=== PATIENT | female | born 1965 | race Hispanic/Latino ===

== ENCOUNTER 2016-08-08 15:35 | Emergency (ER) | payer OTHER ==
[~2016-08-08] VITALS: Ht 149.9 cm; Wt 65.8 kg
[~2016-08-08 15:35] MED LIST: CLINDAMYCIN HY300 MG PO; PRED FORTE 5 ML5 ML OD
[2016-08-08 15:55] VITALS: BP 127/91
[2016-08-08] MEDS ORDERED: ZITHROMAX250 M2 PO (16:28)
[2016-08-08] MEDS ORDERED: PREDNISONE20 M1 PO (16:28)
--- NOTE | 2016-08-08 16:29 | ED INFLUENZA/URI COMPLAINT ---
History of Present Illness General Chief Complaint: Upper Respiratory Sx/Fever Stated Complaint: COLD LIKE SYMPTOMS, LOSS OF VOICE Source: patient Exam Limitations: no limitations Vital Signs & Intake/Output Vital Signs & Intake/Output Vital Signs Date Time Temp Pulse Resp B/P Pulse O2 O2 Flow FiO2 Ox Delivery Rate 08/08 1632 Room Air 08/08 1555 99.8 76 20 127/91 97 Room Air Allergies Coded Allergies: Penicillins (Mild, RASH 08/08/16) Reconcile Medications Azithromycin (Zithromax) 250 MG TABLET 1 DP PO AD SINUSITIS 2 the first day followed by 1 for days 2-5 Prednisone 20 MG TABLET 2 TAB PO DAILY SINUSITIS Triage Note: TRIAGE: PT TO ER WITH C/C URI S/S WITH PRODUCTIVE COUGH, REPORTS YELLOW PHLEGM. DENIES FEVERS, TEMP 99.8 AT TRIAGE. REPORTS LARYNGITIS AND NASAL CONGESTION. Triage Nurses Notes Reviewed? yes HPI: 51-year-old female who with complaints of 2 days of sinus pain and pressure congestion and loss of voice productive green sputum. Symptoms are moderate, tactile fever, no modifying factors no treatment thus far. (LAMONT ADAM) Past History Travel History Traveled to [place] past 21 day No Medical History Any Pertinent Medical History? 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 No (LAMONT ADAM) Review of Systems Review of Systems Constitutional: Reports: see HPI. EENTM: Reports: see HPI. Respiratory: Reports: see HPI. Cardiovascular: Reports: no symptoms. GI: Reports: no symptoms. Genitourinary: Reports: no symptoms. Musculoskeletal: Reports: no symptoms. Skin: Reports: no symptoms. Neurological/Psychological: Reports: no symptoms. Hematologic/Endocrine: Reports: no symptoms. Immunologic/Allergic: Reports: no symptoms. All Other Systems: Reviewed and Negative (LAMONT ADAM) Physical Exam Physical Exam Ears, Nose, Throat: moist mucous membrane, hearing grossly normal, Tympanic normal, nasal congestion, nasal drainage, pharyngeal erythema Comments: Well-developed well-nourished no apparent distress. HEENT: Atraumatic, extraocular motion intact, tenderness of the maxillary sinus, boggy nasal turbinates and erythema noted. Neck: Supple, mild anterior cervical lymphadenopathy Back: Nontender Respiratory: No respiratory distress. Mild crackles noted right lower lung otherwise clear to auscultation. Heart: Regular rate and rhythm no murmur Extremities: No edema, full range of motion Neuro: Alert and oriented x3 Psych: Mood affect normal, normal memory normal judgment. Skin: Warm and dry, no rash on exposed skin Core Measures Severe Sepsis Present: No Septic Shock Present: No (LAMONT ADAM) Progress Differential Diagnosis: influenza, meningitis, neutropenia, otitis, pneumonia, pharyngitis, sinusitis Plan of Care: SINUSITIS WITH POSSIBLE EARLY PNEUMONIA, WE'LL PLACE ON zITHROMAX RECOMMEND CLOSE FOLLOW-UP. sHE HAS laryngitis as well, we'll place on prednisone. Recommend Motrin and Tylenol for fever and pain. Returning here with worsening symptoms Initial ED EKG: none (LAMONT ADAM) Departure Departure Disposition: HOME OR SELF CARE Condition: Stable Clinical Impression Primary Impression: Sinusitis Qualifiers: Sinusitis location: maxillary Chronicity: acute Recurrence: non- recurrent Qualified Code: J01.00 - Acute maxillary sinusitis, unspecified Referrals: CHRISTINA MORALES APRN (PCP/Family) Additional Instructions: Take antibiotics for your infection as directed. Take prednisone for cough and laryngitis Use [id number] multisystem cold medication as needed. Motrin and Tylenol as needed for fever. Drink plenty of fluids. Return or follow-up with your doctor if not better in the next 3-5 days or if you're having continued worsening fevers, nausea, vomiting, shortness of breath, abdominal pain, difficulty swallowing or drinking or worsening flulike illness. 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 I have also reviewed all the pertinent lab results and diagnostic results. I agree with the findings and the plan of care as documented in the PA's/ORDNANCE TRUCK INSTALLATION SUPERVISOR's documentation. [X] I have reviewed the ED Record and agree with the PA's/ORDNANCE TRUCK INSTALLATION SUPERVISOR's documentation. [] Additions or exceptions (if any) to the PAs/ORDNANCE TRUCK INSTALLATION SUPERVISOR's note and plan are summarized below: [] (DENISA BRICEÑO,ALFREDITO)
[2016-08-08] MEDS ORDERED: LEVOTHYROXINE75 MCG PO (16:34)
== END 2016-08-08 16:35 ==
LOC: ERH 15:35
DX: J32.9 Chronic sinusitis, unspecified (principal)

== ENCOUNTER 2016-10-21 02:46 | Emergency (ER) | payer OTHER ==
[~2016-10-21 02:46] MED LIST changes: +LEVOTHYROXINE75 MCG PO; +PREDNISONE20 M1 PO; +ZITHROMAX250 M2 PO
[2016-10-21 03:38] LABS: ABSOLUTE BASOPHIL COUNT 0 /CUMM (0.0-0.2); ABSOLUTE EOSINOPHIL COUNT 0.1 /CUMM (0.0-0.7); ABSOLUTE GRANULOCYTE CT 5.8 /CUMM (1.4-6.5); ABSOLUTE MONOCYTE COUNT 0.4 /CUMM (0.10-0.60); BASOPHIL % 0.3 % (0.0-2.0); EOSINOPHIL % 0.8 % (0-5); HEMATOCRIT 37.2 % (37-47); MEAN CORPUSCULAR HGB 29.4 PG (27.0-31.0); MEAN CORPUSCULAR HGB CONC 33.6 G/DL (33.0-37.0); MEAN CORPUSCULAR VOLUME 87.7 FL (81.0-99.0); MEAN PLATELET VOLUME 8.7 FL (7.4-10.4); PLATELET COUNT 214 /CUMM (130-400); RBC DISTRIBUTION WIDTH 13.6 % (11.5-14.5); RED BLOOD CELL CT 4.24 /CUMM (4.20-5.40); WHITE BLOOD CELL COUNT 7.3 /CUMM (4.8-10.8)
--- NOTE | 2016-10-21 03:49 | ED GI/GU/ABDOMINAL COMPLAINT ---
History of Present Illness General Chief Complaint: Abdominal Pain/Flank Pain Stated Complaint: ABD PAIN S/P PAIN Source: patient, Exam Limitations: clinical condition Vital Signs & Intake/Output Vital Signs & Intake/Output Vital Signs Date Time Temp Pulse Resp B/P Pulse O2 O2 Flow FiO2 Ox Delivery Rate 10/21 0604 97.3 62 18 131/61 98 Room Air 10/21 0328 Room Air 10/21 0303 97.6 82 18 96 Room Air Allergies Coded Allergies: Penicillins (Mild, RASH 08/08/16) Reconcile Medications Azithromycin (Zithromax) 250 MG TABLET 1 DP PO AD SINUSITIS 2 the first day followed by 1 for days 2-5 Prednisone 20 MG TABLET 2 TAB PO DAILY SINUSITIS Triage Note: UPPER ABD PAIN STARTED ABOUT 6:30 PM VOMITED AT GREETERS DESK Triage Nurses Notes Reviewed? yes ? n Is pt currently ? No HPI: Patient presents for evaluation of severe intermittent epigastric abdominal pain that began about 6 PM this evening. Patient has had a little vomiting but otherwise no associated fever or cold symptoms diarrhea or dysuria. She denies any prior episodes. She is unable to describe the characteristics of the pain. She had milk shortly after the onset of pain but this seems to make the pain worse. Past History Travel History Traveled to [place] past 21 day No (with) Medical History Any Pertinent Medical History? 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 No Review of Systems Review of Systems Constitutional: Reports: no symptoms. EENTM: Reports: no symptoms. Respiratory: Reports: no symptoms. Cardiovascular: Reports: no symptoms. GI: Reports: see HPI. Genitourinary: Reports: no symptoms. Musculoskeletal: Reports: no symptoms. Skin: Reports: no symptoms. Neurological/Psychological: Reports: no symptoms. Hematologic/Endocrine: Reports: no symptoms. Immunologic/Allergic: Reports: no symptoms. All Other Systems: Reviewed and Negative Physical Exam Physical Exam Gastrointestinal: see below Comments: Gen.: Well-nourished, well-developed, no acute respiratory distress. Head: Normocephalic, atraumatic. Eyes: Normal inspection bilaterally Ears: Normal inspection bilaterally Nose: Normal inspection Throat/mouth : Moist mucosa Neck: Supple, full range of motion, no goiter Heart: Regular rate and rhythm, no murmurs rubs or gallops Lungs: Clear to auscultation bilaterally with normal air entry Chest: Nontender Back: Normal range of motion Abdomen: Soft, diffuse tenderness, greatest in the epigastric region with brief voluntary guarding but no rebound, nondistended, normal bowel sounds Extremities: Normal range of motion grossly, equal radial pulses, no cyanosis clubbing or edema Neurologic: Cranial nerves grossly intact, speech is clear Skin: warm and dry Psychiatric: Calm, cooperative, no apparent delusions or hallucinations Core Measures ACS in differential dx? No Severe Sepsis Present: No Septic Shock Present: No Progress Differential Diagnosis: biliary colic, bowel obstruction, diverticulitis, gastritis, ischemic bowel, inflamm bowel dis, kidney stone, PUD/GERD Plan of Care: Orders Procedure Date/time Status Add-on Test (ER Only) 10/22 347 Active URINALYSIS 10/22 347 Active LIPASE 10/21 332 Complete COMPREHENSIVE METABOLIC PANEL 10/21 330 Complete CBC WITHOUT DIFFERENTIAL 10/21 330 Complete Laboratory Tests 10/21/16 0558: Urine Color STRAW, Urine Clarity CLEAR, Urine pH 6.0, Ur Specific [place] 1.010, Urine Protein TRACE H, Urine Ketones NEG, Urine Nitrite NEG, Urine Bilirubin NEG, Urine Urobilinogen 0.2, Ur Leukocyte Esterase SMALL H, Ur Microscopic SEDIMENT EXAMINED, Urine RBC Pending, Urine Hemoglobin TRACE-INTACT, Urine Glucose NEG 10/21/16 0333: Anion Gap 9, Estimated GFR > 60, BUN/Creatinine Ratio 17.8, Glucose 128 H, Calcium 9.6, Total Bilirubin 0.8, AST 33, ALT 51, Alkaline Phosphatase 83, Total Protein 6.8, Albumin 4.2, Globulin 2.6, Albumin/Globulin Ratio 1.6, Lipase 95, CBC w Diff NO MAN DIFF REQ, RBC 4.24, MCV 87.7, MCH 29.4, RDW 13.6, MPV 8.7, Gran % 80.0 H, Lymphocytes % 13.9 L, Monocytes % 5.0, Eosinophils % 0.8, Basophils % 0.3, Absolute Granulocytes 5.8, Absolute Lymphocytes 1.0 L, Absolute Monocytes 0.4, Absolute Eosinophils 0.1, Absolute Basophils 0, PUBS MCHC 33.6 Diagnostic Imaging: Discussed w/RAD: CT Scan. Radiology Impression: PATIENT: LAMAR BARAHONA PRESENT AGE: 51 PATIENT ACCOUNT NO: [id number] : 64 LOCATION: [facility] ORDERING PHYSICIAN: RICHARD MCKEON MD SERVICE DATE: 10/21/16 EXAM TYPE: CAT - CT ABD & PELVIS W/O IV CONTRAS EXAMINATION: CT ABDOMEN AND PELVIS WITHOUT CONTRAST CLINICAL INFORMATION: Epigastric abdominal pain. Tenderness. COMPARISON : None TECHNIQUE: Multidetector volumetric imaging was performed from the superior aspect of the liver through the pubic symphysis. Sagittal and coronal reformatted images were obtained on the technologist's workstation. No oral or intravenous contrast DLP: 459.09 mGy-cm FINDINGS: LUNG BASES: The visualized lung bases are unremarkable. LIVER, GALLBLADDER, AND BILIARY TREE: The liver is normal in size, shape, and attenuation. No focal hepatic lesion or biliary ductal dilatation is present. Multiple peripherally calcified small gallstones in the gallbladder. No gallbladder wall thickening. No pericholecystic fluid. PANCREAS: Unremarkable. SPLEEN: Unremarkable. Spleen measures 11.8 cm AP. ADRENAL GLANDS: Unremarkable. KIDNEYS AND URETERS: The kidneys are normal in size, shape, and attenuation. No hydronephrosis, hydroureter, or calculi seen. No perinephric stranding. BLADDER: There is a bladder diverticulum at the dome of the bladder measuring 6 cm. No bladder stone. No inflammation around the bladder. GASTROINTESTINAL TRACT: The small and large bowel are unremarkable. The appendix is unremarkable. ABDOMINAL WALL: No significant hernia is appreciated. LYMPH NODES: Normal. VASCULAR: Unremarkable. PELVIC VISCERA: Surgical clips in the right and left adnexa. No fluid in cul-de-sac. OSSEOUS STRUCTURES: Unremarkable. IMPRESSION: 1. No acute change. 2. Cholelithiasis. 3. Bladder diverticulum. DICTATED BY: SAL MAN MD DATE/TIME DICTATED:10/21/16444 LEAD PROCESS ENGINEER:EVANGELINA DATE/TIME TRANSCRIBED:10/21/16444 CONFIDENTIAL, DO NOT COPY WITHOUT APPROPRIATE AUTHORIZATION. <Electronically signed in Other Vendor System> SIGNED BY: SAL MAN MD 10/21/16 0454 Initial ED EKG: none Comments: 10/21/2016 6:19:32 AM I have updated LAMAR and her regarding test results. I've asked that she follow up with a surgeon for reevaluation this week as I suspect biliary colic. Departure Departure Disposition: HOME OR SELF CARE Condition: Stable Clinical Impression Primary Impression: Biliary colic Referrals: MOY RAMIREZ DO (PCP/Family) Additional Instructions: [place] as needed for pain. Low-fat diet as discussed. Follow up with Dr. Neil Wood this week for reevaluation of your pain and the possibility of having her gallbladder removed. Notify your primary care doctor of this emergency department visit and treatment plan. Return if any concerns or sudden worsening. Please note that there might be incidental findings in your evaluation that are unrelated to the current emergency department visit. Please notify your primary care doctor about this emergency department visit in order to obtain and review all of the testing performed so that these incidental findings can be monitored as needed. If you had an x-ray performed, please understand that some fractures may not be seen on the initial set of x-rays. If your symptoms persist you might need a repeat set of x-rays to check for such a fracture. If you had a laceration evaluated, please understand that foreign bodies such as glass or wood may not be visible to the naked eye or on plain x-rays. If the wound becomes red, swollen, increasingly more painful or if there is any drainage from the wound, please have it reevaluated by a physician for the possibility of a retained foreign body. Thank you for choosing the [facility] Emergency Department for your care. It was a pleasure to serve you today. Richard Mckeon M.D. [facility] Departure Forms: Customer Survey General Discharge Information Prescriptions: Current Visit Scripts Hydrocodone/Acetaminophen ([place] 5-325 Tablet) 1-2 TAB PO Q6P PRN PAIN #20 TAB Ondansetron (Zofran Odt) 1 TAB SL Q6P PRN NAUSEA/VOMITING #10 TAB
--- NOTE | 2016-10-21 04:54 | CT SCAN REPORT ---
EXAMINATION: CT ABDOMEN AND PELVIS WITHOUT CONTRAST CLINICAL INFORMATION: Epigastric abdominal pain. Tenderness. COMPARISON: None TECHNIQUE: Multidetector volumetric imaging was performed from the superior aspect of the liver through the pubic symphysis. Sagittal and coronal reformatted images were obtained on the technologist's workstation. No oral or intravenous contrast DLP: 459.09 mGy-cm FINDINGS: LUNG BASES: The visualized lung bases are unremarkable. LIVER, GALLBLADDER, AND BILIARY TREE: The liver is normal in size, shape, and attenuation. No focal hepatic lesion or biliary ductal dilatation is present. Multiple peripherally calcified small gallstones in the gallbladder. No gallbladder wall thickening. No pericholecystic fluid. PANCREAS: Unremarkable. SPLEEN: Unremarkable. Spleen measures 11.8 cm AP. ADRENAL GLANDS: Unremarkable. KIDNEYS AND URETERS: The kidneys are normal in size, shape, and attenuation. No hydronephrosis, hydroureter, or calculi seen. No perinephric stranding. BLADDER: There is a bladder diverticulum at the dome of the bladder measuring 6 cm. No bladder stone. No inflammation around the bladder. GASTROINTESTINAL TRACT: The small and large bowel are unremarkable. The appendix is unremarkable. ABDOMINAL WALL: No significant hernia is appreciated. LYMPH NODES: Normal. VASCULAR: Unremarkable. PELVIC VISCERA: Surgical clips in the right and left adnexa. No fluid in cul-de-sac. OSSEOUS STRUCTURES: Unremarkable. IMPRESSION: 1. No acute change. 2. Cholelithiasis. 3. Bladder diverticulum.
[2016-10-21 06:04] VITALS: BP 131/61
[2016-10-21] MEDS ORDERED: ZOFRAN ODT4 M1 SL (06:21)
[2016-10-21] MEDS ORDERED: NORCO 5-325 TA1 EACH PO (06:21)
[2016-10-21] MEDS ORDERED: LEVOTHYROXINE75 MCG PO (06:29)
== END 2016-10-21 06:30 ==
LOC: ERH 02:46
PROVIDERS: Emergency Medicine
DX: K80.50 Calculus of bile duct without cholangitis or cholecystitis without obstruction (principal)
CPT/HCPCS: 74176; 81001; 96361; 96374; 96375; J2405

== ENCOUNTER 2018-01-28 11:12 | Observation (INO) | payer OTHER ==
[~2018-01-28] VITALS: Ht 149.9 cm; Wt 74.0 kg
[~2018-01-28 11:12] MED LIST changes: +LEVSIN-SL0.125 MG SL; +NORCO 5-325 TA1 EACH PO; +PANTOPRAZOLE SO40 M1 PO; +ZOFRAN ODT4 M1 SL
[2018-01-28 11:32] LABS: ABSOLUTE BASOPHIL COUNT 0 /CUMM (0.0-0.2); ABSOLUTE EOSINOPHIL COUNT 0.1 /CUMM (0.0-0.7); ABSOLUTE LYMPH COUNT 1.5 /CUMM (1.2-3.4); ABSOLUTE MONOCYTE COUNT 0.4 /CUMM (0.10-0.60); BASOPHIL % 0.3 % (0.0-2.0); GRANULOCYTE % 66.3 % (42.2-75.2); HEMATOCRIT 38.6 % (37-47); MEAN CORPUSCULAR HGB 29.8 PG (27.0-31.0); MEAN CORPUSCULAR HGB CONC 34.8 G/DL (33.0-37.0); MEAN CORPUSCULAR VOLUME 85.4 FL (81.0-99.0); MEAN PLATELET VOLUME 9.3 FL (7.4-10.4); PLATELET COUNT 217 /CUMM (130-400); RBC DISTRIBUTION WIDTH 13.5 % (11.5-14.5); RED BLOOD CELL CT 4.51 /CUMM (4.20-5.40)
--- NOTE | 2018-01-28 12:21 | ED GENERAL ADULT ---
History of Present Illness General Chief Complaint: Abdominal Pain/Flank Pain Stated Complaint: ABD PAIN Source: patient, family Exam Limitations: language barrier Allergies Coded Allergies: Penicillins (Mild, RASH 08/08/16) Reconcile Medications Hydrocodone/Acetaminophen ([place] 5-325 Tablet) 5 MG-325 MG TABLET 1-2 TAB PO Q4-6 PRN PRN severe pain Hyoscyamine Sulfate (Levsin-Sl) 0.125 MG TAB.SUBL 1-2 TAB SL Q4P PRN abdominal pain Levothyroxine Sodium 75 MCG TABLET 75 MCG PO DAILY HYPOTHYROID (Reported) Ondansetron (Zofran Odt) 4 MG TAB.RAPDIS 1 TAB SL TID PRN nausea Pantoprazole Sodium 40 MG TABLET.DR 1 TAB PO PRN GI (Reported) Triage Note: PT TO ED C/O RUQ ABD PAIN FOR A WHILE. SEEN FOR SAME ON 01/23. DENIES N/V/D. DENIES FEVERS. PT WAS SENT HOME WITH PO MEDS, HAS BEEN TAKING BUT THEY ARE NOT HELPING. Triage Nurses Notes Reviewed? yes Onset: Abrupt Duration: day(s): Timing: recent history HPI: 01/28/18 3:08 PM 52-year-old female presents to the emergency department with severe right upper quadrant pain nausea and vomiting. The patient had recently been seen and diagnosed with gallstones. She denies any fever. The pain is severe. (Richard Cruz DO) Vital Signs & Intake/Output Vital Signs & Intake/Output Vital Signs Date Time Temp Pulse Resp B/P B/P Pulse O2 O2 Flow FiO2 Mean Ox Delivery Rate 01/28 1601 98.5 70 16 171/79 98 Room Air 01/28 1349 99.0 63 18 132/82 100 Room Air Room Air 01/28 1244 Room Air 01/28 1115 98.5 62 20 175/93 99 Room Air (Linwood Quezada) Past History Travel History Traveled to [place] past 21 day No Medical History Any Pertinent Medical History? 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 No (Richard Cruz DO) Review of Systems Review of Systems Constitutional: Denies: fever. EENTM: Reports: no symptoms. Respiratory: Denies: short of breath. Cardiovascular: Denies: chest pain. GI: Reports: abdominal pain. Genitourinary: Reports: no symptoms. Musculoskeletal: Reports: no symptoms. Skin: Reports: no symptoms. Neurological/Psychological: Reports: no symptoms. Hematologic/Endocrine: Reports: no symptoms. Immunologic/Allergic: Reports: no symptoms. (Richard Cruz DO) Physical Exam Physical Exam General Appearance: well developed/nourished, alert, awake, anxious, moderate distress Head: atraumatic, normal appearance Eyes: Bilateral: normal appearance, PERRL, EOMI. Ears, Nose, Throat: normal pharynx, normal ENT inspection Neck: normal inspection, supple, full range of motion Respiratory: normal breath sounds, chest non-tender, no respiratory distress Cardiovascular: regular rate/rhythm Peripheral Pulses: 4+ radial (R), 4+ radial (L) Gastrointestinal: soft, tenderness Back: normal range of motion Extremities: normal range of motion Neurologic/Psych: no motor/sensory deficits, awake, alert, oriented x 3 Skin: intact, normal color, warm/dry Core Measures ACS in differential dx? No CVA/TIA Diagnosis: No Sepsis Present: No Sepsis Focused Exam Completed? No (Richard Cruz DO) Progress Differential Diagnoses I considered the following diagnoses in my evaluation of the patient: [ Cholecystitis, cholelithiasis, common bile duct stone] Initial ED EKG: pending (Richard Cruz DO) Plan of Care: Orders Procedure Date/time Status EKG 01/28 1521 Active URINALYSIS 01/28 1118 Complete LIPASE 01/28 1118 Complete HEPATIC FUNCTION PANEL 01/28 1118 Complete CBC WITHOUT DIFFERENTIAL 01/28 1118 Complete BASIC METABOLIC PANEL 01/28 1118 Complete Current Medications Sig/Dany Start time Last Medication Dose Stop Time Status Admin Metronidazole 500 MG IQ8 01/28 1600 UNVr 01/28 (Flagyl) 1546 N/A 1 UNIT (No Carrier) Sodium Chloride 1,000 ML ONCE ONE 01/28 1430 AC 01/28 (Normal Saline 0.9%) 01/28 2109 1454 Laboratory Tests 01/28/18 1300: Urine Color YEL, Urine Clarity CLEAR, Urine pH 7.0, Ur Specific [place] 1.015, Urine Protein 100 H, Urine Ketones NEG, Urine Nitrite NEG, Urine Bilirubin NEG, Urine Urobilinogen 2.0 H, Ur Leukocyte Esterase SMALL H, Ur Microscopic SEDIMENT EXAMINED, Urine RBC 1-3, Urine WBC 1-3 H, Ur Epithelial Cells FEW, Urine Bacteria FEW H, Urine Hemoglobin NEG, Urine Glucose NEG 01/28/18 1126: Anion Gap 11, Estimated GFR 58 L, BUN/Creatinine Ratio 19.0, Glucose 118 H, Calcium 9.8, Total Bilirubin 1.5 H, Direct Bilirubin 0.8 H, AST 215 H, ALT 204 H, Alkaline Phosphatase 102, Total Protein 6.9, Albumin 4.1, Lipase 71, CBC w Diff NO MAN DIFF REQ, RBC 4.51, MCV 85.4, MCH 29.8, MCHC 34.8, RDW 13.5, MPV 9.3, Gran % 66.3, Lymphocytes % 25.5, Monocytes % 5.9, Eosinophils % 2.0, Basophils % 0.3, Absolute Granulocytes 4.0, Absolute Lymphocytes 1.5, Absolute Monocytes 0.4, Absolute Eosinophils 0.1, Absolute Basophils 0 (Linwood Quezada) Departure Departure Condition: Stable Clinical Impression Primary Impression: Cholecystitis Secondary Impressions: Cholelithiasis Referrals: Dario Wilson DO (PCP/Family) Departure Forms: Customer Survey General Discharge Information Comments The patient was signed out to MATTEO Carmona at 3 PM. The patient was pending surgical decision, and EKG. Admission Note Spoke With: Marcelo Solorio MD Documentation of Exam: Documentation of any treatments & extenuating circumstances including Concerns Regarding Discharge (functional status, medication knowledge or non-compliance, living conditions, etc.) that warrant an admission rather than observation: [The patient is being admitted to the surgical service for operative care.] (Richard Cruz DO) Departure Disposition: STILL A PATIENT OR/GI Note Spoke With: Marcelo Solorio MD ED Treatment Decision: LAMAR BARAHONA requires urgent operative management or an emergent procedure that cannot be performed in the Emergency Room setting. Transport To: Surgical Suite (Linwood Quezada) Critical Care Note Critical Care Note Critical Care Time: non-applicable (Richard Cruz DO)
--- NOTE | 2018-01-28 12:34 | RADIOLOGY REPORT ---
EXAMINATION: XR CHEST CLINICAL INFORMATION: Cough. Signs/symptoms of pneumonia. COMPARISON: 11/13/2011 and 03/21/2017 TECHNIQUE: 2 views of the chest were obtained. FINDINGS: There appears to be chronic thickening of peribronchial interstitium in the right upper lobe. The minor fissure appears to be mildly elevated. No pulmonary consolidation or pleural effusion. Cardiac silhouette is normal in size. The hilar contours are normal. The visualized bones of the thorax are intact. IMPRESSION: There appears to be chronic, mild prominence of peribronchial interstitium and mild volume loss of the right upper lobe. Given history of cough, the possibility of recurrent airway inflammation/bronchitis would be considered. However, there is no acute pulmonary consolidation.
--- NOTE | 2018-01-28 13:41 | ULTRASOUND REPORT ---
EXAMINATION: US ABDOMEN LIMITED CLINICAL INFORMATION: Right upper quadrant. Evaluation for cholecystitis requested.. COMPARISON: CT abdomen pelvis 10/21/2017 TECHNIQUE: Real-time imaging of the right upper quadrant abdominal viscera. Examination limited as patient wasn't able to hold breath and severe pain. Overlying bowel gas also limits evaluation. FINDINGS: PANCREAS: The pancreas is only partially visualized. Visualized portions are grossly unremarkable. LIVER: Normal. The liver demonstrates normal size, contour and echogenicity. No focal lesion or intrahepatic biliary duct dilatation. GALLBLADDER: The gallbladder is physiologically distended. Numerous gallstones are present. Gallbladder wall thickening measuring up to 7 mm. No definitive pericholecystic fluid. Sonographic [place]'s sign is positive per technologist report. COMMON BILE DUCT: Normal in caliber measuring 0.5 cm in diameter. RIGHT KIDNEY: Limited visualization. No gross renal calculi or hydronephrosis. The kidney measures 8.3 cm in maximum dimension. FREE FLUID: None. IMPRESSION: Gallstones are again visualized within a physiologically distended gallbladder. There is gallbladder wall thickening but no pericholecystic fluid visualized. Sonographic [place]'s sign is positive. Correlation for acute cholecystitis should be based on clinical assessment.
--- NOTE | 2018-01-28 16:36 | History & Physical Pre-Op ---
General Information and HPI MD Statement: I have seen and personally examined LAMAR BARAHONA and documented this H& P. The patient is a 52 year old F who presented with a patient stated chief complaint of []. History of Present Illness: This is a 52-year-old woman who presents to the emergency room for the second time in less than 1 week. She complains of persistent right upper quadrant abdominal pain. She states the pain began last week and she sought attention in the ER. Evaluation showed gallstones with normal CBCs and LFTs. Her pain improved while in the ER she was sent home with Percocet. Patient states that since then she has been experiencing recurrent pain after meals. The pain is in the right upper quadrant and radiates to the back. There is no nausea or vomiting although her appetite is suppressed. Bowel function is regular. Today there is evidence of chronic inflammatory changes of the gallbladder as well as mild elevation of LFTs. Allergies/Medications Allergies: Coded Allergies: Penicillins (Mild, RASH 08/08/16) Home Med list Hydrocodone/Acetaminophen ([place] 5-325 Tablet) 5 MG-325 MG TABLET 1-2 TAB PO Q4-6 PRN PRN severe pain Hyoscyamine Sulfate (Levsin-Sl) 0.125 MG TAB.SUBL 1-2 TAB SL Q4P PRN abdominal pain Levothyroxine Sodium 75 MCG TABLET 75 MCG PO DAILY HYPOTHYROID (Reported) Ondansetron (Zofran Odt) 4 MG TAB.RAPDIS 1 TAB SL TID PRN nausea Pantoprazole Sodium 40 MG TABLET.DR 1 TAB PO PRN GI (Reported) Past History Medical History Neurological: NONE EENT: NONE Cardiovascular: NONE Respiratory: NONE Gastrointestinal: NONE Hepatic: NONE Renal: NONE Musculoskeletal: NONE Psychiatric: NONE Blood Disorders: NONE Cancer(s): NONE 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 No dyspnea on exertion. No dysuria. No arthritic conditions. Abdominal pain per HPI remainder 12 points negative Exam & Diagnostic Data Last 24 Hrs of Vital Signs/I&O Vital Signs Date Time Temp Pulse Resp B/P B/P Pulse O2 O2 Flow FiO2 Mean Ox Delivery Rate 01/28 1601 98.5 70 16 171/79 98 Room Air 01/28 1349 99.0 63 18 132/82 100 Room Air Room Air 01/28 1244 Room Air 01/28 1115 98.5 62 20 175/93 99 Room Air Intake & Output 01/28 1600 01/28 0800 01/28 0000 Intake Total 0 Output Total Balance 0 Intake, Oral 0 Patient 150 lb Weight Weight Reported by Patient Measurement Method Physical Exam: Gen.: She is overweight but not obese. She looks her stated age. She is in mild amount of distress. HEENT: Anicteric PERRL EOMI Chest: Clear bilaterally Heart: Regular rate rhythm Abdomen: Soft tender upper quadrant negative [place] sign no mass no hernia Extremities: No sinus clubbing or edema Last 24 Hrs of Labs/Laith: Laboratory Tests 01/28/18 1300: Urine Color YEL, Urine Clarity CLEAR, Urine pH 7.0, Ur Specific [place] 1.015, Urine Protein 100 H, Urine Ketones NEG, Urine Nitrite NEG, Urine Bilirubin NEG, Urine Urobilinogen 2.0 H, Ur Leukocyte Esterase SMALL H, Ur Microscopic SEDIMENT EXAMINED, Urine RBC 1-3, Urine WBC 1-3 H, Ur Epithelial Cells FEW, Urine Bacteria FEW H, Urine Hemoglobin NEG, Urine Glucose NEG 01/28/18 1126: Anion Gap 11, Estimated GFR 58 L, BUN/Creatinine Ratio 19.0, Glucose 118 H, Calcium 9.8, Total Bilirubin 1.5 H, Direct Bilirubin 0.8 H, AST 215 H, ALT 204 H, Alkaline Phosphatase 102, Total Protein 6.9, Albumin 4.1, Lipase 71, CBC w Diff NO MAN DIFF REQ, RBC 4.51, MCV 85.4, MCH 29.8, MCHC 34.8, RDW 13.5, MPV 9.3, Gran % 66.3, Lymphocytes % 25.5, Monocytes % 5.9, Eosinophils % 2.0, Basophils % 0.3, Absolute Granulocytes 4.0, Absolute Lymphocytes 1.5, Absolute Monocytes 0.4, Absolute Eosinophils 0.1, Absolute Basophils 0 Diagnostic Data Other Results Ultrasound right upper quadrant shows gallstones with gallbladder wall thickening. There is no pericholecystic fluid. Common bile duct is normal caliber Assessment/Plan Assessment/Plan: This is a 52-year-old woman with unrelenting right upper quadrant abdominal pain for 5 days. There is gallbladder wall thickening which was not seen previously. Concern is for acute cholecystitis. There is mild elevation in her LFTs but normal bile duct on ultrasound. Unclear whether or not the LFTs related to a Mirrizi syndrome or common bile duct stone. Recommendations are that for laparoscopic cholecystectomy with intraoperative cholangiogram. Postoperative ERCP will be performed pending the findings. Patient's informed the risk of the operation including bleeding, infection, conversion to open, postcholecystectomy diarrhea and she agrees to proceed. As Ranked By This Provider Problem List: 1. Cholecystitis Copies To: Dario Wilson DO
--- NOTE | 2018-01-28 16:41 | History & Physical Pre-Op ---
General Information and HPI MD Statement: I have seen and personally examined GABI DEVINELOSLAMAR and documented this H& P. The patient is a 52 year old F who presented with a patient stated chief complaint of [abdominal pain]. Source of Information: patient, family Exam Limitations: no limitations History of Present Illness: Ms King is a 52yo female who has a known history of gallstones. She had an attack a year ago and at that time was told to follow up with a surgeon. She didn't follow up and had no other problems until last week. On 01/23 she presented to the ED with abdominal pain and at that time her labs were all wnl including lft's and wbc. She was discharged from the ED with biliary colic. She returns today because her pain worsened overnight. She had coffee at 9 am, no other food or drink today. Allergies/Medications Allergies: Coded Allergies: Penicillins (Mild, RASH 08/08/16) Home Med list Hydrocodone/Acetaminophen ([place] 5-325 Tablet) 5 MG-325 MG TABLET 1-2 TAB PO Q4-6 PRN PRN severe pain Hyoscyamine Sulfate (Levsin-Sl) 0.125 MG TAB.SUBL 1-2 TAB SL Q4P PRN abdominal pain Levothyroxine Sodium 75 MCG TABLET 75 MCG PO DAILY HYPOTHYROID (Reported) Ondansetron (Zofran Odt) 4 MG TAB.RAPDIS 1 TAB SL TID PRN nausea Pantoprazole Sodium 40 MG TABLET.DR 1 TAB PO PRN GI (Reported) Past History Medical History Neurological: NONE EENT: NONE Cardiovascular: NONE Respiratory: NONE Gastrointestinal: NONE Hepatic: NONE Renal: NONE Musculoskeletal: NONE Psychiatric: NONE Endocrine: ?THYROID Blood Disorders: NONE Cancer(s): 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
--- NOTE | 2018-01-28 18:43 | Operative Report ---
Operative/Inv Procedure Report Surgery Date: 01/28/18 Name of Procedure: Laparoscopic cholecystectomy with cholangiogram Pre-Operative Diagnosis: Acute cholecystitis Post-Operative Diagnosis: Acute cholecystitis with choledocholithiasis Estimated Blood Loss: less than 50ml Surgeon/Boatswains Mate: Marcelo Solorio M.D./Ramon FELIPE Anesthesia: general endotracheal tube Drains: None Specimens: Gallbladder Operative Indication: 52-year-old woman presents with unrelenting right upper quadrant abdominal pain for 4 days. She has findings on clinical examination and ultrasound of acute cholecystitis. There is elevated LFTs (mild) without biliary ductal dilatation. She presents for laparoscopic cholecystectomy with cholangiogram Operative/Procedure Note Note: After informed consent patient is brought to the operating room and laid supine. General anesthesia was obtained and her abdomen was prepped and draped. The skin above the umbilicus infiltrated with local anesthesia and a curvilinear incision made sharply. We came down through the subcutaneous tissues bluntly and grasped the fascia with Nayla's. A fasciotomy was created sharply and stay sutures placed. The peritoneum was entered sharply and a blunt Mccoy port was placed. Pneumoperitoneum was achieved. 3, 5 mm ports were placed in the epigastrium and right upper quadrant after local anesthesia was instilled and under direct vision the camera. She's placed in reverse Trendelenburg and rotated towards the left. The gallbladder is identified. Gallbladder was edematous with watery inflammatory changes. It was grasped at the dome and retracted towards the head. Infundibulum was then grasped. Adhesions to the undersurface were taken down with blunt and cautery dissection. We dissected both sides the triangle Calot peritoneal tissue with cautery. The artery was medial and its normal anatomic position. It was cauterized medially to allow it to be mobilized away from the duct. [place] was cleared of areolar tissue with cautery. The arteries was doubly ligated with clips. A proximal clip was placed on the cystic duct and a ductotomy created. Large amounts of sludge spontaneously evacuated. Cholangiogram catheter was placed down into the cystic duct and balloon inflated. Under live fluoroscopy, cholangiogram was performed. There was filling of the intrahepatic and extra hepatic biliary ducts. There is no passage of contrast into the duodenum. Then went back in laparoscopically and passed the deflated balloon catheter distally into the common duct. I was able to push the catheter into what appeared to be the duodenum. Scant pressure was required to do so. Repeat cholangiogram was then performed. There is easy flow of contrast into the duodenum. There is no intraluminal filling defects. We then concluded the cholangiogram. The distal cystic duct was then doubly ligated with clips. Gallbladder is removed from the fossa electrocautery. It was placed in Endo Catch bag and cinched up. Right upper quadrant was and suction irrigated normal saline. Hemostasis achieved with cautery. The ports were then removed and the gallbladder delivered and passed off the field. The fascia was closed with 0 Vicryl suture. Skin incisions closed with 4-0 Vicryl. Steri-Strips and sterile dressing applied. Sponge and needle counts are correct. CC: Dario Wilson DO
--- NOTE | 2018-01-28 19:43 | RADIOLOGY REPORT ---
EXAMINATION: XR ABDOMEN CLINICAL INDICATION: Cholangiogram. COMPARISON: None TECHNIQUE: AP view of the abdomen. FINDINGS: There are 9 digital images obtained from T2 cholangiogram revealing good opacification of the entire CBD and proximal intrahepatic ducts with no intraluminal filling defect. The soft tissues are normal. IMPRESSION: T-tube cholangiogram reveals no intraluminal filling defect in the CBD or the proximal intrahepatic ducts.
--- NOTE | 2018-01-28 20:33 | Patient Discharge Instructions ---
Discharge Instructions General Discharge Information You were seen/treated for: CHOLECYSTITIS You had these procedures: LAP ROMERO Watch for these problems: FEVER OR CHILLS, DRAINAGE FROM WOUNDS REDNESS AROUND SURGICAL SITES INCREASING ABDOMINAL PAIN Call Surgeon to remove: WOUND CHECK No bath, but you may shower: Yes Other wound care: KEEP DRY AND COVERED Diet Continue normal diet: Yes Activity Full Activity/No Limits: No Activity Self Limited: Yes Acute Coronary Syndrome Inclusion Criteria At DC or during hospital stay patient has or had the following: Discharge Core Measures Meds if any: Prescribed or Continued at Discharge Meds if any: NOT Prescribed or Continued at Discharge Congestive Heart Failure Inclusion Criteria At DC or during hospital stay patient has or had the following: Discharge Core Measures Meds if any: Prescribed or Continued at Discharge Meds if any: NOT Prescribed or Continued at Discharge Cerebrovascular accident Inclusion Criteria At DC or during hospital stay patient has or had the following: CVA/TIA Diagnosis No Discharge Core Measures Meds if any: Prescribed or Continued at Discharge Meds if any: NOT Prescribed or Continued at Discharge Venous thromboembolism Discharge Core Measures - Per Current guidelines, there needs to be overlap - treatment for the first 5 days of Warfarin therapy. - If discharged on Warfarin prior to 5 days of - overlap therapy, the patient will need to be - assessed for post discharge needs including - *Post discharge parental anticoagulation - *Warfarin and/or parental anticoagulation education - *Follow up date to check INR post discharge Meds if any: Prescribed or Continued at Discharge Note: Overlap Therapy is Warfarin and Anticoagulant Meds if any: NOT Prescribed or Continued at Discharge
[2018-01-28 20:34] VITALS: BP 141/76
--- NOTE | 2018-01-28 20:37 | Surg Short-stay <48hrs Dis Sum ---
Visit Information Visit Dates Admission Date: 01/28/18 Discharge Date: 01/29/2018 Surgical Short Stay DC Summary Admission Diagnosis: CHOLECYSTITIS Final Diagnosis: CHOLECYSTITIS Procedure(s): LAPROSCOPIC CHOLECYSTECTOMY Summary/Significant Findings: 52 Y/O FEMALE WAS TAKEN TO THE OPERATING ROOM BY DR DUMONT AND UNDERWENT A LAPRASCOPIC CHOLECYSTEMY WITH INTRAOPERATIVE CHOLANGIOGRAM. SHE TOLERATED THE PROCEDURE WELL. HER DIET WAS ADVANCED AND SHE AMBULATED OOB. SHE IS DISCHARGED HOME IN STABLE CONDITION Condition at Discharge: STABLE Discharge Disposition: home or self care Discharge instructions provided to patient/family: Yes Post discharge follow-up plan: [address] DUMONT Copies to: Osmin BRICEÑO,Marcelo Villegas
[2018-01-28 22:30] VITALS: BP 158/70
--- NOTE | 2018-01-28 23:29 | PN- General Surgery ---
HuySumi 01/28/18 2323: Subjective Subjective: 52 Y/O FEMALE COMFORTABLE POSTOP LAP ROMERO WITHOUT COMPLAINTS. SHE HAS SOME ITCHING POSTOP AND REPONDED TO BENEDRYL. Objective Vital Signs and I&Os Vital Signs Date Time Temp Pulse Resp B/P B/P Pulse O2 O2 Flow FiO2 Mean Ox Delivery Rate 01/28 2034 100 Nasal 2.0L Cannula 01/28 2034 98.3 67 16 141/76 100 Nasal 2.0L Cannula 01/28 1601 98.5 70 16 171/79 98 Room Air 01/28 1349 99.0 63 18 132/82 100 Room Air Room Air 01/28 1244 Room Air 01/28 1115 98.5 62 20 175/93 99 Room Air Intake & Output 01/28 1600 01/28 0800 01/28 0000 01/27 1600 01/27 0800 01/27 0000 Intake Total 0 Output Total Balance 0 Intake, Oral 0 Patient 150 lb Weight Weight Reported by Patient Measurement Method Physical Exam: VSS AFEBRILE NO WHEAL OR HIVES CHEST -CTA SYMMETRIC HEART-RRR WITHOUT MRG ABD -DRESSINGS DRY, QUIET ABDOMEN BILATERAL LOWER EXTREMITIES -CALVES SOFT, DISTAL PULSES INTACT Current Medications: Current Medications Sig/Dany Start time Last Medication Dose Route Stop Time Status Admin Ceftriaxone Sodium 2,000 MG DAILY 01/29 0900 AC IV Ceftriaxone Sodium 0 .STK-MED ONE 01/28 1536 DC .ROUTE Ceftriaxone Sodium 1,000 MG ONCE ONE 01/28 1530 DC 01/28 IV 01/28 1531 1546 Dextrose/Sodium 1,000 ML .Q20H 01/28 1845 AC 01/28 Chloride IV 2000 Diphenhydramine HCl 25 MG ONCE ONE 01/285 DC 01/28 PO 01/28 211 2123 Heparin Sodium 5,000 UNIT Q8 01/28 2200 AC 01/28 (Porcine) SC 2123 Levothyroxine Sodium 0.075 MG DAILY AC 01/29 0700 AC PO Metronidazole 500 MG IQ8 01/29 0000 CAN N/A 1 UNIT IV Metronidazole 500 MG IQ8 01/28 1600 AC 01/28 N/A 1 UNIT IV 1546 Morphine Sulfate 2 MG Q2P PRN 01/28 1845 AC IV Morphine Sulfate 0 .STK-MED ONE 01/28 1438 DC .ROUTE Morphine Sulfate 4 MG ONCE ONE 01/28 1430 DC 01/28 IV 01/28 1431 1454 Omeprazole 40 MG DAILY AC 01/29 0700 AC PO Ondansetron HCl 4 MG Q6P PRN 01/28 1845 AC IV Ondansetron HCl 0 .STK-MED ONE 01/28 1132 DC PO Ondansetron HCl 4 MG ONCE ONE 01/28 1130 DC 01/28 PO 01/28 1131 1134 Oxycodone HCl 5 MG Q4P PRN 01/28 1845 AC PO Oxycodone HCl 10 MG Q4P PRN 01/28 1845 AC PO Sodium Chloride 1,000 ML ONCE ONE 01/28 1430 DC 01/28 IV 01/28 2109 1454 Results Last 48 Hours of Labs: Laboratory Tests 01/28 01/28 1300 1126 Chemistry Sodium (137 - 145 mmol/L) 143 Potassium (3.5 - 5.1 mmol/L) 4.2 Chloride (98 - 107 mmol/L) 104 Carbon Dioxide (22 - 30 mmol/L) 28 Anion Gap (5 - 16) 11 BUN (7 - 17 mg/dL) 19 H Creatinine (0.5 - 1.0 mg/dL) 1.0 Estimated GFR (>60 ml/min) 58 L BUN/Creatinine Ratio (7 - 25 %) 19.0 Glucose (65 - 99 mg/dL) 118 H Calcium (8.4 - 10.2 mg/dL) 9.8 Total Bilirubin (0.2 - 1.3 mg/dL) 1.5 H Direct Bilirubin (< 0.4 mg/dL) 0.8 H AST (14 - 36 U/L) 215 H ALT (9 - 52 U/L) 204 H Alkaline Phosphatase (<127 U/L) 102 Total Protein (6.3 - 8.2 g/dL) 6.9 Albumin (3.5 - 5.0 g/dL) 4.1 Lipase (23 - 300 U/L) 71 Hematology CBC w Diff NO MAN DIFF REQ WBC (4.8 - 10.8 /CUMM) 6.0 RBC (4.20 - 5.40 /CUMM) 4.51 Hgb (12.0 - 16.0 G/DL) 13.4 Hct (37 - 47 %) 38.6 MCV (81.0 - 99.0 FL) 85.4 MCH (27.0 - 31.0 PG) 29.8 MCHC (33.0 - 37.0 G/DL) 34.8 RDW (11.5 - 14.5 %) 13.5 Plt Count (130 - 400 /CUMM) 217 MPV (7.4 - 10.4 FL) 9.3 Gran % (42.2 - 75.2 %) 66.3 Lymphocytes % (20.5 - 51.1 %) 25.5 Monocytes % (1.7 - 9.3 %) 5.9 Eosinophils % (0 - 5 %) 2.0 Basophils % (0.0 - 2.0 %) 0.3 Absolute Granulocytes (1.4 - 6.5 /CUMM) 4.0 Absolute Lymphocytes (1.2 - 3.4 /CUMM) 1.5 Absolute Monocytes (0.10 - 0.60 /CUMM) 0.4 Absolute Eosinophils (0.0 - 0.7 /CUMM) 0.1 Absolute Basophils (0.0 - 0.2 /CUMM) 0 Urines Urine Color (YEL,AMB,STR) YEL Urine Clarity (CLEAR) CLEAR Urine pH (5.0 - 8.0) 7.0 Ur Specific [place] (1.001 - 1.035) 1.015 Urine Protein (NEG,<30 MG/DL) 100 H Urine Ketones (NEG) NEG Urine Nitrite (NEG) NEG Urine Bilirubin (NEG) NEG Urine Urobilinogen (0.1 - 1.0 EU/dl) 2.0 H Ur Leukocyte Esterase (NEG) SMALL H Ur Microscopic SEDIMENT EXAMINED Urine RBC (0 - 5 /HPF) 1-3 Urine WBC (0 - 2 /HPF) 1-3 H Ur Epithelial Cells (NONE,FEW) FEW Urine Bacteria (NEG/NONE) FEW H Urine Hemoglobin (NEG) NEG Urine Glucose (N MG/DL) NEG Assessment/Plan Assessment/Plan POSTOP CHECK AFTER LAP ROMERO PRURITIS CONTROLLED ON BENEDRYL PAIN CONTROLLED ADVANCE DIET IN AM, HEPLOCK FLUIDS D/C PLANNING FOR TOMORROW Core Measures Venous Thromboembolism VTE Risk Factors Surgery No Mechanical VTE Prophylaxis d/t N/A MechProphylax Ordered No VTE Pharm Prophylaxis d/t NA PharmProphylax ordered
[2018-01-29 03:07] VITALS: BP 124/60
[2018-01-29 06:42] VITALS: BP 128/66
--- NOTE | 2018-01-29 07:38 | PN- General Surgery ---
See Addendum Subjective Subjective: Pt in bed, no complaints, pain minimal,well controlled with oral medication. tolerating clears, no n/v Voiding, ambulating. denies cp/sob. has a mildheadache this morning Objective Vital Signs and I&Os Vital Signs Date Time Temp Pulse Resp B/P B/P Pulse O2 O2 Flow FiO2 Mean Ox Delivery Rate 01/29 0642 98.2 66 18 128/66 98 Room Air 01/29 0307 98.3 68 18 124/60 100 Nasal 2.0L Cannula 01/28 2230 98.3 70 18 158/70 100 Nasal 3.0L Cannula 01/28 203 100 Nasal 2.0L Cannula 01/28 2034 98.3 67 16 141/76 100 Nasal 2.0L Cannula 01/28 1601 98.5 70 16 171/79 98 Room Air 01/28 1349 99.0 63 18 132/82 100 Room Air Room Air 01/28 1244 Room Air 01/28 1115 98.5 62 20 175/93 99 Room Air Intake & Output 01/29 0800 01/29 0000 01/28 1600 / 0800 01/28 0000 01/27 1600 Intake Total 980 580 0 Output Total 300 Balance 980 280 0 Intake, IV 500 100 Intake, Oral 480 480 0 Number 0 0 Bowel Movements Output, Urine 300 Patient 163 lb 150 lb Weight Weight Reported by Patient Measurement Method Physical Exam: gen-nad resp-clear cardiac-rrr abd-obese, soft, nontender. dressings clean and dry Current Medications: Current Medications Sig/Dany Start time Last Medication Dose Route Stop Time Status Admin Ceftriaxone Sodium 2,000 MG DAILY 01/29 0900 IV Ceftriaxone Sodium 0 .STK-MED ONE 01/28 1536 DC .ROUTE Ceftriaxone Sodium 1,000 MG ONCE ONE 01/28 1530 DC / IV 01/28 1531 1546 Dextrose/Sodium 1,000 ML .Q20H 01/28 1845 01/28 Chloride IV 2000 Diphenhydramine HCl 25 MG ONCE ONE 01/28 2115 DC 01/28 PO 01/29 2116 2123 Heparin Sodium 5,000 UNIT Q8 01/28 2200 AC 01/29 (Porcine) SC 0527 Levothyroxine Sodium 0.075 MG DAILY AC 01/29 0700 AC 01/29 PO 05 Metronidazole 500 MG IQ8 01/29 0000 CAN N/A 1 UNIT IV Metronidazole 500 MG IQ8 01/28 1600 AC 01/29 N/A 1 UNIT IV 0008 Morphine Sulfate 2 MG Q2P PRN 01/28 1845 AC IV Morphine Sulfate 0 .STK-MED ONE 01/28 1438 DC .ROUTE Morphine Sulfate 4 MG ONCE ONE 01/28 1430 DC 01/28 IV 01/28 1431 1454 Omeprazole 40 MG DAILY AC 01/29 0700 AC 01/29 PO 0527 Ondansetron HCl 4 MG Q6P PRN 01/28 1845 AC IV Ondansetron HCl 0 .STK-MED ONE 01/28 1132 DC PO Ondansetron HCl 4 MG ONCE ONE 01/28 1130 DC 01/28 PO 01/28 1131 1134 Oxycodone HCl 5 MG Q4P PRN 01/28 1845 AC 01/29 PO 0526 Oxycodone HCl 10 MG Q4P PRN 01/28 1845 AC PO Sodium Chloride 1,000 ML ONCE ONE 01/28 1430 DC 01/28 IV 01/28 2109 1454 Results Last 48 Hours of Labs: Laboratory Tests 01/28 01/28 2350 1300 Chemistry Amylase (30 - 110 U/L) 536 H Lipase (23 - 300 U/L) 51 Urines Urine Color (YEL,AMB,STR) YEL Urine Clarity (CLEAR) CLEAR Urine pH (5.0 - 8.0) 7.0 Ur Specific [place] (1.001 - 1.035) 1.015 Urine Protein (NEG,<30 MG/DL) 100 H Urine Ketones (NEG) NEG Urine Nitrite (NEG) NEG Urine Bilirubin (NEG) NEG Urine Urobilinogen (0.1 - 1.0 EU/dl) 2.0 H Ur Leukocyte Esterase (NEG) SMALL H Ur Microscopic SEDIMENT EXAMINED Urine RBC (0 - 5 /HPF) 1-3 Urine WBC (0 - 2 /HPF) 1-3 H Ur Epithelial Cells (NONE,FEW) FEW Urine Bacteria (NEG/NONE) FEW H Urine Hemoglobin (NEG) NEG Urine Glucose (N MG/DL) NEG 01/28 1126 Chemistry Sodium (137 - 145 mmol/L) 143 Potassium (3.5 - 5.1 mmol/L) 4.2 Chloride (98 - 107 mmol/L) 104 Carbon Dioxide (22 - 30 mmol/L) 28 Anion Gap (5 - 16) 11 BUN (7 - 17 mg/dL) 19 H Creatinine (0.5 - 1.0 mg/dL) 1.0 Estimated GFR (>60 ml/min) 58 L BUN/Creatinine Ratio (7 - 25 %) 19.0 Glucose (65 - 99 mg/dL) 118 H Calcium (8.4 - 10.2 mg/dL) 9.8 Total Bilirubin (0.2 - 1.3 mg/dL) 1.5 H Direct Bilirubin (< 0.4 mg/dL) 0.8 H AST (14 - 36 U/L) 215 H ALT (9 - 52 U/L) 204 H Alkaline Phosphatase (<127 U/L) 102 Total Protein (6.3 - 8.2 g/dL) 6.9 Albumin (3.5 - 5.0 g/dL) 4.1 Lipase (23 - 300 U/L) 71 Hematology CBC w Diff NO MAN DIFF REQ WBC (4.8 - 10.8 /CUMM) 6.0 RBC (4.20 - 5.40 /CUMM) 4.51 Hgb (12.0 - 16.0 G/DL) 13.4 Hct (37 - 47 %) 38.6 MCV (81.0 - 99.0 FL) 85.4 MCH (27.0 - 31.0 PG) 29.8 MCHC (33.0 - 37.0 G/DL) 34.8 RDW (11.5 - 14.5 %) 13.5 Plt Count (130 - 400 /CUMM) 217 MPV (7.4 - 10.4 FL) 9.3 Gran % (42.2 - 75.2 %) 66.3 Lymphocytes % (20.5 - 51.1 %) 25.5 Monocytes % (1.7 - 9.3 %) 5.9 Eosinophils % (0 - 5 %) 2.0 Basophils % (0.0 - 2.0 %) 0.3 Absolute Granulocytes (1.4 - 6.5 /CUMM) 4.0 Absolute Lymphocytes (1.2 - 3.4 /CUMM) 1.5 Absolute Monocytes (0.10 - 0.60 /CUMM) 0.4 Absolute Eosinophils (0.0 - 0.7 /CUMM) 0.1 Absolute Basophils (0.0 - 0.2 /CUMM) 0 Assessment/Plan Assessment/Plan 52yo F SP lap maurice with intra-op cholangiogram POD1. stable awaitng AM labs cont clears and IVF for now until labs come encourage ambulation and IS dc plannign- likely will dc home later today if labs are ok and if tolerates diet FU with dr elizalde in 10 days as outpt Core Measures Venous Thromboembolism VTE Risk Factors Surgery No Mechanical VTE Prophylaxis d/t N/A MechProphylax Ordered No VTE Pharm Prophylaxis d/t NA PharmProphylax ordered
[2018-01-29] MEDS ORDERED: PERCOCET 5-3251 EACH PO (07:45)
[2018-01-29] MEDS ORDERED: COLACE100 M1 PO (07:47)
[2018-01-29] MEDS ORDERED: MIRALAX17 G1 PO (07:47)
[2018-01-29 09:39] LABS: ABSOLUTE BASOPHIL COUNT 0 /CUMM (0.0-0.2); ABSOLUTE EOSINOPHIL COUNT 0 /CUMM (0.0-0.7); ABSOLUTE GRANULOCYTE CT 6.5 /CUMM (1.4-6.5); ABSOLUTE LYMPH COUNT 0.4 /CUMM (1.2-3.4); ABSOLUTE MONOCYTE COUNT 0.1 /CUMM (0.10-0.60); BASOPHIL % 0 % (0.0-2.0); EOSINOPHIL % 0 % (0-5); GRANULOCYTE % 92.6 % (42.2-75.2); HEMATOCRIT 36.4 % (37-47); MEAN CORPUSCULAR HGB 29.8 PG (27.0-31.0); MEAN CORPUSCULAR HGB CONC 34.1 G/DL (33.0-37.0); MEAN CORPUSCULAR VOLUME 87.4 FL (81.0-99.0); MEAN PLATELET VOLUME 9.6 FL (7.4-10.4); PLATELET COUNT 191 /CUMM (130-400); RBC DISTRIBUTION WIDTH 13.7 % (11.5-14.5); RED BLOOD CELL CT 4.16 /CUMM (4.20-5.40)
[2018-01-29 10:24] VITALS: BP 140/76
--- NOTE | 2018-01-29 15:35 | Surg Short-stay <48hrs Dis Sum ---
Visit Information Visit Dates Admission Date: 01/28/18 Discharge Date: 01/29/18 Surgical Short Stay DC Summary Admission Diagnosis: CHOLECYSTITIS Final Diagnosis: CHOLECYSTITIS Procedure(s): LAPROSCOPIC CHOLECYSTECTOMY WITH CHOLANGIOGRAM Summary/Significant Findings: 52 Y/O FEMALE WAS TAKEN TO THE OPERATING ROOM BY DR DUMONT AND UNDERWENT A LAPRASCOPIC CHOLECYSTEMY WITH INTRAOPERATIVE CHOLANGIOGRAM. SHE TOLERATED THE PROCEDURE WELL. HER DIET WAS ADVANCED AND SHE AMBULATED OOB. SHE IS DISCHARGED HOME IN STABLE CONDITION Condition at Discharge: STABLE Discharge Disposition: home or self care Discharge instructions provided to patient/family: Yes Post discharge follow-up plan: [address] DUMONT Copies to: Dario Wilson DO
== END 2018-01-29 14:30 ==
LOC: ERH 11:12 → 2NB 19:07 → PACUH 19:07 → ENRESERV 19:31 → ENTRNSPT 19:47 → EDTRNSPTSTS 19:52 → 2NB 20:03 → CMPTRNSPT 20:12 → ENPENDDIS 01-29 12:05 → ENTRNSPT 01-29 14:11 → EDTRNSPT 01-29 14:29 → EDTRNSPTSTS 01-29 14:29 → 2NB 01-29 14:30 → CMPTRNSPT 01-29 14:55
PROVIDERS: Nurse Practitioner; Physician Assistant
DX: K80.46 Calculus of bile duct with acute and chronic cholecystitis without obstruction (principal); E05.90 Thyrotoxicosis, unspecified without thyrotoxic crisis or storm; R10.11 Right upper quadrant pain; R79.89 Other specified abnormal findings of blood chemistry
CPT/HCPCS: 1328; 1530; 1748; 6040; 36415; 36592; 71046; 74018; 81001; 82436; 93005; 93010; 96372; 96374; 96375; 96376; G0378; J0131; J0696; J1644; J2250; J3010; J3101; J7042; Q9967